=== PATIENT | female | born 1965 | race African-American/Black ===

== ENCOUNTER 2016-02-14 16:03 | Observation (INO) | payer OTHER ==
[~2016-02-14] VITALS: Ht 167.6 cm; Wt 95.4 kg
[~2016-02-14 16:03] MED LIST: ABILIFY5 MG PO; ADULT LOW DOSE81 M1 PO; ADVAIR 250/501 DISK IH; ALBUTEROL SULF8.5 GM IH; ALBUTEROL2.5 MG/0.5 IH; ALDACTONE25 MG PO; ALPRAZOLAM0.5 MG PO; ALPRAZOLAM1 MG PO; ANTIVERT25 MG PO; ASPIR 8181 M1 PO; ATARAX,VISTARIL50 MG PO; ATROVENT 00.5 MG/2.5 IH; Ambien PO; BRINTELLIX10 MG PO; BRINTELLIX20 MG PO; CARVEDILOL PO; CARVEDILOL12.5 MG PO; CARVEDILOL6.25 MG PO; CEFTIN500 MG PO; CELEBREX200 MG PO; CELECOXIB200 MG PO; CIPRO500 MG PO; COLACE100 MG PO; COMBIVENT RESPIM4 GM IH; COREG12.5 M1 PO; COREG25 M1 PO; COREG6.25 M1 PO; CYMBALTA60 MG PO; Coreg PO; DAILY VITAMIN1 EAC8 PO; DAILY VITE1 EAC1 PO; DESYREL100 MG PO; DIAZEPAM10 MG PO; DIGOX125 MCG PO; DIGOXIN PO; DIGOXIN125 MCG PO; DILAUDID4 MG PO; DUONEB 2.5-0.5 M3 ML AEROSOL; DUONEB 2.5-0.5 M3 ML IH; EFFEXOR XR150 MG PO; Effexor PO; FERROUS SULFAT325 MG PO; FLONASE16 G1 BOTH NARES; FLOVENT; FLOVENT 22120 INHALA IH; FLUOXETINE HCL20 M1 PO; FOSINOPRIL SODI10 MG PO; FUROSEMIDE40 MG PO; Flonase BOTH NARES; Flovent 220 mcg IH; HYDROCODON-ACE1 EAC5; HYDROCODON-ACE1 EAC5 PO; HYDROMORPHONE HC4 MG PO; HYDROXYZINE HCL50 MG PO; IRON PO; IRON325 M1 PO; KENALOG,ARISTOC80 GM TP; KLONOPIN1 MG PO; KlonoPIN PO; LASIX PO; LASIX20 MG PO; LIDODERM 5% P1 PATCH TD; LISINOPRIL PO; LISINOPRIL10 MG PO; LUNESTA3 MG PO; LYRICA50 MG PO; LYRICA75 MG PO; Lanoxin,Digitek PO; Lasix PO; MONOPRIL10 MG PO; MONTELUKAST SOD10 MG PO; MOVANTIK25 MG PO; MS CONTIN,ORAMO15 M1 PO; MYCOSTATIN 100,60 ML PO; NORCO 10/3251 TABLET PO; OMEPRAZOLE PO; OMEPRAZOLE20 M2 PO; OMEPRAZOLE20 MG PO; PERCOCET 10/1 TABLET PO; PERCOCET 5/31 TABLET PO; PREDNISONE10 MG PO; PREDNISONE20 MG PO; PREDNISONE50 MG PO; PRILOSEC20 MG PO; PROAIR HFA8.5 GM IH; PROVENTIL,2.5 MG/3 M IH; PROVERA,CYCRIN10 MG PO; PROZAC40 MG PO; PULMICORT FLE180 MCG IH; Proventil,Ventolin H IH; SINGULAIR10 MG PO; SPIRONOLACTONE25 MG PO; TIZANIDINE HCL4 M1 PO; TIZANIDINE HCL4 MG PO; TOPAMAX50 MG PO; TRAZODONE HCL100 MG PO; Topamax PO; VENLAFAXINE HC150 MG; VENTOLIN HFA18 GM IH; VITAMIN E400 UNI6 PO; VITAMIN E400 UNIT PO; Vicodin,Norco 5/325 PO; XANAX1 MG PO; Xanax PO; ZAFIRLUKAST20 M1 PO; ZYRTEC10 M2 PO; Zestril,Prinivil PO; predniSONE PO
[2016-02-14 16:32] LABS: MCH 28.8 PG (29.0-34.0); MCHC 32.8 G/DL (30.0-36.0); MCV 87.6 FL (83-99); MEAN PLAT.VOLUME 11.7 uM^3 (9.5-12.4); PLATELET COUNT 179 K/uL (156-360); RBC DIS.WIDTH-CV 14.9 % (11.8-14.6); RBC DIS.WIDTH-SD 47.3 % (39-53); RED BLOOD COUNT 4.45 M/uL (3.80-5.20); WHITE BLOOD COUNT 6.3 K/uL (4.1-10.2)
[2016-02-14] MEDS ORDERED: COREG3.125 M1 PO ×2 (16:42→22:08)
[2016-02-14] MEDS ORDERED: MONOPRIL10 MG PO ×2 (16:42→22:09)
[2016-02-14] MEDS ORDERED: LASIX20 MG PO ×2 (16:43→22:07)
[2016-02-14] MEDS ORDERED: ALDACTONE25 MG PO ×2 (16:43→22:09)
[2016-02-14] MEDS ORDERED: PREVACID15 MG PO (16:43)
[2016-02-14] MEDS ORDERED: LANOXIN125 MCG PO (16:43)
[2016-02-14] MEDS ORDERED: CELEBREX200 MG PO (16:44)
[2016-02-14] MEDS ORDERED: TOPAMAX50 MG PO ×2 (16:44→22:08)
[2016-02-14] MEDS ORDERED: MS CONTIN,ORAMO15 M1 PO (16:44)
[2016-02-14] MEDS ORDERED: XANAX1 MG PO (16:44)
[2016-02-14 16:45] LABS: CHLORIDE 111 mEq/L (99-109); POTASSIUM 3.8 mEq/L (3.7-5.4); SODIUM 141 mEq/L (136-147)
[2016-02-14] MEDS ORDERED: DILAUDID4 MG PO ×2 (16:45→22:09)
[2016-02-14] MEDS ORDERED: ATROVENT 00.5 MG/2.5 IH (16:45)
[2016-02-14] MEDS ORDERED: SPIRIVA (16:45)
[2016-02-14] MEDS ORDERED: CLOTRIMAZOLE (16:46)
[2016-02-14] MEDS ORDERED: HYDROCORTISONE (16:46)
[2016-02-14] MEDS ORDERED: POLYETHYLENE GL17 GM PO (16:46)
[2016-02-14] MEDS ORDERED: CLOBETASOL (16:46)
[2016-02-14 16:47] LABS: GLUCOSE 100 mg/dL (70-99)
[2016-02-14] MEDS ORDERED: SINGULAIR10 MG PO ×2 (16:47→22:08)
[2016-02-14] MEDS ORDERED: VITAMIN D PO (16:47)
[2016-02-14 16:48] LABS: ANION GAP 9 MEQ/L (2-14)
[2016-02-14 16:51] LABS: GFR ESTIMATE (CALCULATED) > 59 mL/min/; UREA NITROGEN (BUN) 12 mg/dL (9-23)
[2016-02-14 16:55] LABS: TROP-I INTERPRETATION NEGATIVE; TROPONIN-I < 0.01 ng/mL (0.0-0.30)
[2016-02-14 17:58] LABS: ADD MIUA? NO; BILIRUBIN NEGATIVE; BLOOD NEGATIVE; COLOR YELLOW ((YELLOW)); GLUCOSE (STRIP) NEGATIVE; KETONES NEGATIVE; LEUKOCYTES NEGATIVE; NITRITE NEGATIVE; PH, URINE 6.5 (5-8); PROTEIN (STRIP) NEGATIVE; SPECIFIC GRAVITY 1.026 (1.000-1.030); UCUL ADDED? NO
[2016-02-14 19:19] LABS: D-DIMER ELISA 0.55 mg/L FEU (< 0.57)
[2016-02-14] MEDS ORDERED: SPIRIVA RESPIMAT4 G1 IH (22:06)
[2016-02-14] MEDS ORDERED: DIGOX125 MCG PO (22:06)
[2016-02-14] MEDS ORDERED: ALPRAZOLAM1 MG PO (22:07)
[2016-02-14] MEDS ORDERED: MORPHINE SULFAT15 M1 PO (22:07)
[2016-02-14] MEDS ORDERED: DUONEB 2.5-0.5 M3 ML AEROSOL (22:08)
[2016-02-14] MEDS ORDERED: HEARTBURN TREAT15 MG PO (22:08)
[2016-02-14] MEDS ORDERED: CELECOXIB200 MG PO (22:09)
[2016-02-14] MEDS ORDERED: MIRALAX17 GM PO (22:10)
[2016-02-14] MEDS ORDERED: PROCTOSOL-HC28.35 GM PR (22:11)
[2016-02-14] MEDS ORDERED: CLOBETASOL PROP60 G1 TP (22:11)
[2016-02-14] MEDS ORDERED: ITCH RELIEF15 G1 TP (22:11)
[2016-02-15 00:46] LABS: TROP-I INTERPRETATION NEGATIVE; TROPONIN-I < 0.01 ng/mL (0.0-0.30)
[2016-02-15 01:47] VITALS: BP 108/56; BP 114/59
[2016-02-15 01:48] VITALS: BP 112/60
[2016-02-15 04:22] VITALS: BP 103/58
[2016-02-15 06:09] LABS: EOSINOPHIL (%) 2.1 % (0-5); EOSINOPHIL COUNT 0.1 K/uL (0-0.3); HEMATOCRIT 37.7 % (36.0-46.0); LYMPHOCYTE COUNT 1.6 K/uL (1.0-2.8); MCH 28.8 PG (29.0-34.0); MCHC 32.1 G/DL (30.0-36.0); MCV 89.8 FL (83-99); MEAN PLAT.VOLUME 11.7 uM^3 (9.5-12.4); MONOCYTE (%) 8.3 % (3-12); MONOCYTE COUNT 0.4 K/uL (0-0.8); NEUTROPHIL (%) 58.7 % (45-76); PLATELET COUNT 170 K/uL (156-360); RBC DIS.WIDTH-CV 15.2 % (11.8-14.6); RBC DIS.WIDTH-SD 49.2 % (39-53); WHITE BLOOD COUNT 5.2 K/uL (4.1-10.2)
[2016-02-15 06:36] LABS: TROP-I INTERPRETATION NEGATIVE; TROPONIN-I < 0.01 ng/mL (0.0-0.30)
[2016-02-15 06:41] LABS: ALKALINE PHOSPHATASE 25 IU/L (3-129); ANION GAP 5 MEQ/L (2-14); CHLORIDE 110 MEQ/L (99-109); DIRECT BILIRUBIN 0.1 mg/dL (0.0-0.3); GFR ESTIMATE (CALCULATED) > 59 mL/min/; GLUCOSE 84 mg/dL (70-99); POTASSIUM 3.8 MEQ/L (3.7-5.4); SAMPLE HEMOLYSIS CHECK 0; SAMPLE ICTERIC CHECK 0; SAMPLE LIPEMIA CHECK 0; SODIUM 139 MEQ/L (136-147); TOTAL BILIRUBIN 0.3 MG/DL (0.0-1.0); UREA NITROGEN (BUN) 13 mg/dL (9-23)
[2016-02-15 08:00] VITALS: BP 90/54
[2016-02-15] MEDS ORDERED: 24 HOUR ALLER15.8 ML NS ×2 (11:04→11:06)
[2016-02-15 12:00] VITALS: BP 116/74
[2016-02-15 16:00] VITALS: BP 125/71
== END 2016-02-15 18:18 | disposition home or self-care (01) ==
LOC: EXP 16:03 → EME 16:03 → 5WEST 23:07 → EDOF 23:07 → 5WEST 02-15 00:58
PROVIDERS: Internal Medicine; Nurse Practitioner Family
DX: R55 Syncope and collapse (principal); I42.9 Cardiomyopathy, unspecified; Z95.810 Presence of automatic (implantable) cardiac defibrillator; I11.0 Hypertensive heart disease with heart failure; I50.22 Chronic systolic (congestive) heart failure; G47.30 Sleep apnea, unspecified; E66.9 Obesity, unspecified; F41.9 Anxiety disorder, unspecified; K21.9 Gastro-esophageal reflux disease without esophagitis; Z79.891 Long term (current) use of opiate analgesic; I34.0 Nonrheumatic mitral (valve) insufficiency; R51 Headache; G89.29 Other chronic pain; J30.9 Allergic rhinitis, unspecified; Z82.49 Family history of ischemic heart disease and other diseases of the circulatory system; Z82.5 Family history of asthma and other chronic lower respiratory diseases; Z88.8 Allergy status to other drugs, medicaments and biological substances
CPT/HCPCS: 70450; 71020; 80048; 80076; 81003; 83880; 84484; 85025; 85027; 85379; 93005; 94640; 94640 76; 99202; 99281; 99285; G0378; J1644

== ENCOUNTER 2016-09-11 10:55 | Emergency (ER) | payer OTHER ==
[~2016-09-11] VITALS: Ht 167.6 cm; Wt 93.8 kg
[~2016-09-11 10:55] MED LIST changes: +24 HOUR ALLER15.8 ML NS; +CLOBETASOL; +CLOBETASOL PROP60 G1 TP; +CLOTRIMAZOLE; +COREG3.125 M1 PO; +HEARTBURN TREAT15 MG PO; +HYDROCORTISONE; +ITCH RELIEF15 G1 TP; +LANOXIN125 MCG PO; +MIRALAX17 GM PO; +MORPHINE SULFAT15 M1 PO; +POLYETHYLENE GL17 GM PO; +PREVACID15 MG PO; +PROCTOSOL-HC28.35 GM PR; +SPIRIVA; +SPIRIVA RESPIMAT4 G1 IH; +VITAMIN D PO
[2016-09-11 12:29] LABS: MCH 27.7 PG (29.0-34.0); MCHC 31.1 G/DL (30.0-36.0); MCV 89.1 FL (83-99); MEAN PLAT.VOLUME 10.8 uM^3 (9.5-12.4); PLATELET COUNT 172 K/uL (156-360); RBC DIS.WIDTH-CV 18.4 % (11.8-14.6); RBC DIS.WIDTH-SD 60.1 % (39-53); RED BLOOD COUNT 4.94 M/uL (3.80-5.20); WHITE BLOOD COUNT 3.9 K/uL (4.1-10.2)
[2016-09-11 12:51] LABS: CHLORIDE 106 mEq/L (99-109); POTASSIUM 4.5 mEq/L (3.7-5.4); SODIUM 140 mEq/L (136-147)
[2016-09-11 12:54] LABS: GLUCOSE 81 mg/dL (70-99)
[2016-09-11 12:55] LABS: ANION GAP 5 MEQ/L (2-14)
[2016-09-11 12:56] LABS: TOTAL BILIRUBIN 0.4 mg/dL (0.0-1.0)
[2016-09-11 12:57] LABS: ALKALINE PHOSPHATASE 36 IU/L (3-129)
[2016-09-11 12:58] LABS: GFR ESTIMATE (CALCULATED) > 59 mL/min/
[2016-09-11 12:59] LABS: UREA NITROGEN (BUN) 19 mg/dL (9-23)
[2016-09-11 13:00] LABS: CREATINE KINASE 37 IU/L (1-294); TOTAL CK 37 IU/L (1-294)
[2016-09-11 13:09] LABS: TROP-I INTERPRETATION NEGATIVE; TROPONIN-I < 0.01 ng/mL (0.0-0.30)
[2016-09-11 13:10] LABS: CK-MB 0.9 ng/mL (0.0-4.9)
[2016-09-11 14:49] LABS: TROP-I INTERPRETATION NEGATIVE; TROPONIN-I < 0.01 ng/mL (0.0-0.30)
[2016-09-11] MEDS ORDERED: MOTRIN600 MG PO (15:32)
[2016-09-11] MEDS ORDERED: ROBAXIN750 MG PO (15:32)
[2016-09-11] MEDS ORDERED: LIDODERM 5% P1 PATCH TD (15:32)
[2016-09-11 20:25] VITALS: BP 105/61
== END 2016-09-11 20:27 | disposition home or self-care (01) ==
LOC: EME 10:55
PROVIDERS: Emergency Medicine
DX: M54.12 Radiculopathy, cervical region (principal); R07.89 Other chest pain; J45.909 Unspecified asthma, uncomplicated; K21.9 Gastro-esophageal reflux disease without esophagitis; R56.9 Unspecified convulsions
CPT/HCPCS: 71020; 71275; 78582; 80053; 82550; 82553; 84484; 85027; 85379; 93005; 99281; 99284; A9539; A9540; J1885; J3360